=== PATIENT | male | born 1990 | race Caucasian/White ===

== ENCOUNTER 2017-06-19 10:44 | Emergency (ER) | payer OTHER ==
--- NOTE | ~2017-06-19 | ER ---
PATIENT'S NAME: DONTRELL MARROQUIN [facility] AGE: 27 Y [address] ROOM: [place] [address] LOCATION: [facility] ADMIT DATE: 06/19/2017 ER/Outpatient Report DISCHARGE DATE: 06/19/2017 FAMILY PHYSICIAN: PHYSICIAN, NO ATTENDING PHYSICIAN: Iván Nunez Time of Arrival: 1044 hours. Time of Evaluation: 1044 hours. CHIEF COMPLAINT: Right hand injury. HISTORY OF PRESENT ILLNESS: The patient is a 27-year-old male who presents to the emergency department today with a chief complaint of right hand injury. The patient was a partial trauma activation after his right hand got caught in a steel rolling machine. There is no other injury noted. The patient reports severe pain to his right hand. The patient is right-handed. His tetanus is up-to-date. Tourniquet was placed by EMS prior to arrival. Denies any other associated symptoms. No chest pain. No shortness of breath. No fevers, chills, nausea, vomiting, diarrhea, or constipation. PAST MEDICAL HISTORY: None. PAST SURGICAL HISTORY: None. SOCIAL HISTORY: The patient does chew tobacco. Denies any alcohol or illicit drug use. ALLERGIES: NO KNOWN DRUG ALLERGIES. MEDICATIONS: None. PRIMARY CARE DOCTOR: None. REVIEW OF SYSTEMS: All systems are reviewed by myself and are negative with the exception of those discussed in the HPI and past medical history. PHYSICAL EXAMINATION: PATIENT'S NAME: DONTRELL MARROQUIN [facility] AGE: 27 Y [address] ROOM: [place] [address] LOCATION: [facility] ADMIT DATE: 06/19/2017 ER/Outpatient Report DISCHARGE DATE: 06/19/2017 FAMILY PHYSICIAN: PHYSICIAN, NO ATTENDING PHYSICIAN: Iván Nunez VITAL SIGNS: Temperature 99.0, pulse 94, respiratory rate 18, blood pressure 179/109, and pulse oximetry 99% on 2 L nasal cannula. GENERAL: The patient is a 27-year-old male, appears as stated age, in obvious acute discomfort secondary to significant right hand injury. HEENT: Normocephalic and atraumatic. Pupils are equal, round, and reactive to light. NECK: Supple. There is no nuchal rigidity. CARDIOVASCULAR: Tachycardic. No murmurs, rubs, or gallops. LUNGS: Clear to auscultation bilaterally. No wheezes, rales, or rhonchi. ABDOMEN: Soft, nontender, and nondistended. No rebound, rigidity, or guarding. MUSCULOSKELETAL: The patient is able to move his right elbow. He does not appear to have any tenderness to palpation about the right forearm or right elbow. No other bony tenderness to palpation is noted other than significant injuries to the right hand. The patient's right hand at the wrist, just proximal to the wrist, does have degloving injury, it is circumferential. Essentially, the entire skin is removed from this portion. The patient does have mangled multiple fractures of the 4 fingers of the right hand. He is still able to move his right thumb. Tourniquet is in place. SKIN: The patient has a circumferential degloving injury to the right hand. LABORATORY DATA AND X-RAYS: X-ray of the right hand is obtained; it is reviewed by myself; it does reveal significant injuries with fractures, lacerations, and amputations present at the second, third, fourth, and fifth digits. The thumb is grossly intact. Two-view x-ray of the forearm is also obtained; there is no evidence of fracture; there is a small rounded ossific density at the ulnar styloid, likely old injury. CBC is unremarkable. Coags are unremarkable. CMP is unremarkable. Alcohol is less than 0.01. IMPRESSION: 1. Severe right hand degloving with multiple fractures open at second, third, fourth, and fifth fingers. 2. Initial visit. EMERGENCY DEPARTMENT COURSE: The patient was brought back to the examination room. Seen and evaluated by myself immediately upon arrival. The patient was partial trauma activation. I did contact Dr. Orona with Orthopedic Surgery. He has discussed the case with Dr. Farr with Hand Surgery. Dr. Farr with Hand Surgery has seen and evaluated the patient down here in the emergency department, has discussed different options including potential amputation versus flap coverage. The patient does wish to be as aggressive as possible maintaining his length and would prefer transfer for possible flap coverage. Dr. Farr has contacted [facility], who apparently has recommended transfer to [place]. The patient is PATIENT'S NAME: DONTRELL MARROQUIN [facility] AGE: 27 Y [address] ROOM: [place] [id number] LOCATION: [facility] ADMIT DATE: 06/19/2017 ER/Outpatient Report DISCHARGE DATE: 06/19/2017 FAMILY PHYSICIAN: , CLEO ATTENDING PHYSICIAN: Iván Nunez transferred to Dr. Lezama. The patient's tourniquet is removed by myself. The wound is covered with nonadherent sterile saline soaked gauze. This is then covered by bandage. The patient did receive multiple aliquots of Dilaudid IV. DISPOSITION: The patient is transferred to [place] for Plastic Surgery evaluation for possible hand flap in stable condition. DO CHEYANNE GAN/anamika /[id number] d: 06/19/17 2217 t: 06/20/17 0559, OUTPATIENT REPORT
--- NOTE | ~2017-06-19 | CON ---
PATIENT'S NAME: ANTONY MARROQUIN [facility] AGE: 27 Y [address] ROOM: [place] [address] LOCATION: [facility] ADMIT DATE: 06/19/2017 Consultation DISCHARGE DATE: 06/19/2017 FAMILY PHYSICIAN: PHYSICIAN, NO ATTENDING PHYSICIAN: Iván Nunez DATE OF CONSULTATION: 06/19/2017 REFERRING PHYSICIAN: Osmel Farr MD CHIEF COMPLAINT: Right forearm and wrist injury. HISTORY OF PRESENT ILLNESS: Antony is a 27-year-old male who had a crushing injury from a roller today while at work when he was attempting to clean the roller. He sustained a degloving injury from his wrist distally. He does have significant bleeding from this, has no feeling in his fingers, and he has crush injury to his fingertips. He was evaluated by the Emergency Department, and then Orthopedic Surgery was consulted for this. He is right-hand dominant. PHYSICAL EXAMINATION: GENERAL: He is no acute distress. NEUROLOGIC: He is awake and alert. CARDIOVASCULAR: Well-perfused left upper extremity. LUNGS: Respirations nonlabored. EXTREMITIES: Right upper extremity; his right hand shows a degloving injury from proximal to his carpus, distal and a crush injury to all of his index, middle, ring, and small fingertips from the proximal phalanx level distally. The underlying tendons at his wrist level appear intact and he has exposed tendon circumferentially. The contralateral wrist has normal skin, is intact, no injuries. He has no pain in his right forearm, proximal to the level of the injury. A tourniquet was inflated at the proximal forearm previously. He has moderate bleeding from the wound. IMAGING: X-rays of the right hand show severe fractures of the distal, middle, and proximal phalanges of the index through small fingers and soft tissue deficit overlying the dorsal hand and wrist. DIAGNOSIS: Right hand crush injury with degloving injury to wrist. PLAN: I had an extensive discussion with him about this. This is a severe injury and typically does not have an optimal outcome. There is a high likelihood of PATIENT'S NAME: ANTONY MARROQUIN [facility] AGE: 27 Y [address] ROOM: [place] [address] LOCATION: [facility] ADMIT DATE: 06/19/2017 Consultation DISCHARGE DATE: 06/19/2017 FAMILY PHYSICIAN: PHYSICIAN, NO ATTENDING PHYSICIAN: Iván Nunez him requiring an amputation, and coverage for this would typically be optimized with an abdominal or groin flap to provide vascularized coverage followed by later takedown of this and grafting at the opposite side of his hand as needed then, with an external fixator applied to his first webspace to keep this open and hopefully allow him to eventually have some pincer function of his hand. This is a surgery that requires more extensive plastic surgical expertise than a case will allow, and there is no other plastic surgeon to help with performing this available at our hospital. I did have an extensive discussion with Dr. Collins, Dr. Casas, and the plastic hand surgeon at the [facility], and they did not feel that they could provide this care either as a tertiary referral center. Finally, I had a discussion with Dr. Blake Zaragoza in [place], [place], who did feel comfortable with at least evaluating and considering some type of coverage procedure for him. Based upon this, I discussed this with the patient and his family, and they elected to proceed with a transfer to [place] for further management. We can see him back in the future if he is having further issues with this and we can be of some assistance. Otherwise, we will allow him to continue to follow up with Dr. Zaragoza. Thank you for this dictation. MD DEBORA ASHLEY/anamika /[id number] d: t: 07/12/17 2109, CONSULTATION REPORT
[2017-06-19 11:03] LABS: BASOPHIL # 0.1 K/uL (0.0-0.2); BASOPHIL % 0.6 %; EOSINOPHIL # 0.5 K/uL (0.0-0.5); EOSINOPHIL % 5.3 %; HEMATOCRIT 40.8 % (37.0-53.0); HEMOGLOBIN 13.3 g/dL (12.0-17.0); IMMATURE GRANULOCYTE # 0.1 K/uL (0.0-0.3); IMMATURE GRANULOCYTE % 0.7 %; LYMPHOCYTE # 2.8 K/uL (0.8-4.0); LYMPHOCYTE % 32.9 %; MCH 29.1 pg (27.0-34.0); MCHC 32.6 gm/dL (32.0-36.5); MCV 89.3 fl (83.0-98.0); MONOCYTE # 0.6 K/uL (0.0-1.0); MONOCYTE % 6.7 %; MPV 9.2 fl (9.4-12.4); NEUTROPHIL # (ANC) 4.6 K/uL (1.4-9.0); NEUTROPHIL % 53.8 %; NRBC % 0 /100WBC (0-0.00); PLATELET COUNT 251 K/uL (150-450); RBC 4.57 M/uL (4.00-6.00); RDW-CV 11.9 % (11.9-14.6); WBC 8.5 K/uL (4.0-11.0)
[2017-06-19 11:12] LABS: INR - (THERAPEUTIC) 0.99 (0.92-1.07); PROTIME 10.4 SECONDS (9.8-11.4); PTT 22 SECONDS (25-32)
[2017-06-19 11:16] LABS: ALBUMIN 3.6 gm/dL (3.5-5.0); ANION GAP 10.7 (10.0-19.0); BLOOD UREA NITROGEN 9 mg/dL (6-24); CHLORIDE 108 mMol/L (96-110); CO2 25 mMol/L (22-32); CREATININE 0.8 mg/dL (0.6-1.3); POTASSIUM 3.7 mMol/L (3.7-5.1); SODIUM 140 mMol/L (135-145)
[2017-06-19 11:19] LABS: PHOSPHORUS 1.9 mg/dL (2.5-4.9)
[2017-06-19 14:22] LABS: BILIRUBIN URINE NEGATIVE (NEGATIVE); BLOOD URINE NEGATIVE /UL (NEGATIVE); COLOR URINE YELLOW (YELLOW); GLUCOSE URINE NEGATIVE (NEGATIVE); KETONE URINE NEGATIVE (NEGATIVE); LEUKOCYTES URINE NEGATIVE /UL (NEGATIVE); NITRITE URINE NEGATIVE (NEGATIVE); PROTEIN URINE NEGATIVE (NEGATIVE); TURBIDITY URINE CLEAR (CLEAR); UROBILINOGEN URINE NORMAL (NORMAL)
== END 2017-06-19 14:16 | disposition disaster alternative care site (69) ==
LOC: GACC 10:44
PROVIDERS: Emergency Medicine
DX: S62.610B Displaced fracture of proximal phalanx of right index finger, initial encounter for open fracture (principal); S62.612B Displaced fracture of proximal phalanx of right middle finger, initial encounter for open fracture; S62.614B Displaced fracture of proximal phalanx of right ring finger, initial encounter for open fracture; S63.296A Dislocation of distal interphalangeal joint of right little finger, initial encounter; F17.220 Nicotine dependence, chewing tobacco, uncomplicated; W31.9XXA Contact with unspecified machinery, initial encounter
CPT/HCPCS: G0390; G0480; J0690; J1170; J7030

== ENCOUNTER → 2017-06-19 | Outpatient (CLI) | payer OTHER | END | disposition disaster alternative care site (69) | LOC: GAMB 10:23 | DX: S69.92XA Unspecified injury of left wrist, hand and finger(s), initial encounter (principal); M79.641 Pain in right hand; W23.0XXA Caught, crushed, jammed, or pinched between moving objects, initial encounter | CPT/HCPCS: A0422; A0425; A0433; J3010; J7030 ==

== ENCOUNTER → 2017-06-19 | Outpatient (CLI) | payer OTHER | END | disposition disaster alternative care site (69) | LOC: GAMB 14:21 | DX: S69.91XA Unspecified injury of right wrist, hand and finger(s), initial encounter (principal); R58 Hemorrhage, not elsewhere classified; M79.641 Pain in right hand; X58.XXXA Exposure to other specified factors, initial encounter | CPT/HCPCS: A0425; A0426 ==